=== PATIENT | female | born 1955 | race Caucasian/White ===

== ENCOUNTER 2022-04-21 12:41 | Emergency (ER) | payer OTHER ==
[2022-04-21 13:38] LABS: #Eosinphils 0.2 thou/uL (0.0-0.7); #Lymphocytes 1.3 thou/uL (1.20-3.40); #Monocytes 0.4 thou/uL (0.11-0.59); #Neutrophils 3.8 thou/uL (1.40-6.50); %Basophils 0.1 % (0.0-1.0); %Eosinophils 2.6 % (0.0-10.0); %Lymphocytes 23.6 % (21.0-51.0); %Monocytes 6.6 % (0.0-10.0); %Neutrophils 67.1 % (42.0-75.0); Hemoglobin 12.4 g/dL (12.0-16.0); Mean Corpuscular HGB CONC 33.6 g/dL (32.0-36.0); Mean Corpuscular Volume 92.1 fl (78.0-98.0); Mean Platelet Volume 8.9 fL (7.4-10.4); Platelet Count 177 10x3/uL (130-400); RBC Distribution Width 11.8 % (11.5-14.5); Red Blood Cell (RBC) Count 3.99 mill/uL (4.20-5.40); White Blood Cell (WBC) Count 5.7 10x3/uL (4.8-10.8)
[2022-04-21 13:43] LABS: Bacteria/HPF None Seen HPF (None Seen); Bilirubin Negative (Negative); Blood, Urine Negative (Negative); Clarity Clear (Clear); Glucose, Urine (Dipstick) Normal (Negative); Ketone, Urine Negative (Negative); Leukocyte 75 Leu/uL (Negative); Nitrite Negative (Negative); Protein, Urine (Dipstick) Negative (Neg-Trace); RBC/HPF 0-3 HPF (0-3); Specific Gravity, Urine 1.018 (1.002-1.036); Squamous Epithelial 0-3 HPF (0-3); Urobilinogen Normal mg/dL (Less than 2); WBC/HPF 0-3 HPF (0-3)
[2022-04-21 13:55] LABS: ALT (SGPT) 29 U/L (8-55); AST (SGOT) 28 U/L (5-34); Albumin 3.6 g/dL (3.4-4.8); Alkaline Phosphatase 73 U/L (40-110); Anion Gap 10 mmol/L (10-20); BUN (Urea Nitrogen) 12 mg/dL (9.8-20.1); Bilirubin, Total 0.9 mg/dL (0.2-1.2); Calc. Creatinine Clearance 0 mL/min (70-130); Calcium 8.6 mg/dL (7.8-10.44); Carbon Dioxide 30 mmol/L (23-31); Chloride 104 mmol/L (98-107); Estimated GFR 96; Globulin 3.1 g/dL (2.4-3.5); Glucose 95 mg/dL (80-115); Potassium 3.8 mmol/L (3.5-5.1); Protein, Total 6.7 g/dL (5.8-8.1); Sodium 140 mmol/L (136-145)
== END 2022-04-21 15:52 | disposition home or self-care (01) ==
LOC: ERS 12:41
DX: M79.604 Pain in right leg (principal); R41.82 Altered mental status, unspecified; F17.210 Nicotine dependence, cigarettes, uncomplicated; W18.30XA Fall on same level, unspecified, initial encounter; Y93.01 Activity, walking, marching and hiking
CPT/HCPCS: 36415; 36416; 70450; 71046; 80053; 81003; 81015; 84484; 85025; 93005

== ENCOUNTER 2022-05-14 14:36 | Observation (INO) | payer OTHER ==
[2022-05-14 15:11] LABS: #Eosinphils 0.2 thou/uL (0.0-0.7); #Lymphocytes 1.4 thou/uL (1.20-3.40); #Monocytes 0.5 thou/uL (0.11-0.59); #Neutrophils 3.7 thou/uL (1.40-6.50); %Basophils 0.1 % (0.0-1.0); %Eosinophils 2.7 % (0.0-10.0); %Monocytes 8.3 % (0.0-10.0); %Neutrophils 64.9 % (42.0-75.0); Hemoglobin 12.9 g/dL (12.0-16.0); Mean Corpuscular HGB CONC 34.1 g/dL (32.0-36.0); Mean Corpuscular Hemoglobin 31.3 pg (27.0-31.0); Mean Platelet Volume 8.1 fL (7.4-10.4); Platelet Count 213 10x3/uL (130-400); RBC Distribution Width 11.9 % (11.5-14.5); Red Blood Cell (RBC) Count 4.12 mill/uL (4.20-5.40); White Blood Cell (WBC) Count 5.6 10x3/uL (4.8-10.8)
[2022-05-14 15:34] LABS: ALT (SGPT) 26 U/L (8-55); AST (SGOT) 26 U/L (5-34); Albumin 3.8 g/dL (3.4-4.8); Alkaline Phosphatase 80 U/L (40-110); Anion Gap 12 mmol/L (10-20); BUN (Urea Nitrogen) 14 mg/dL (9.8-20.1); Bilirubin, Total 0.8 mg/dL (0.2-1.2); Calc. Creatinine Clearance 0 mL/min (70-130); Calcium 9.4 mg/dL (7.8-10.44); Carbon Dioxide 29 mmol/L (23-31); Chloride 103 mmol/L (98-107); Estimated GFR 92; Globulin 2.7 g/dL (2.4-3.5); Glucose 91 mg/dL (80-115); Potassium 4.1 mmol/L (3.5-5.1); Protein, Total 6.5 g/dL (5.8-8.1); Sodium 140 mmol/L (136-145)
[2022-05-14] MEDS ORDERED: Ondansetron PF 4 MG/2 ML Vial ONE (17:02)
[2022-05-14] MEDS ORDERED: Morphine 4 MG/ML VIAL ONE (17:02)
[2022-05-14 18:31] LABS: Magnesium 1.9 mg/dL (1.6-2.6)
[2022-05-14 20:55] VITALS: BMI 18.3
[2022-05-14] MEDS: Acetaminophen 500 MG TAB PO PRN (22:53)
[2022-05-14] MEDS ORDERED: Melatonin 3 MG TAB PO SCH (23:45)
[2022-05-15] MEDS: Aspirin Chewable 81 MG TAB PO SCH (09:02)
[2022-05-15] MEDS: Oxybutynin 5 MG TAB PO SCH ×2 (09:02→20:39)
[2022-05-15] MEDS: carBAMazepine 200 MG TAB PO SCH ×2 (09:02→20:39)
[2022-05-15] MEDS: Venlafaxine XR 37.5 MG CAP PO SCH (09:02)
[2022-05-16 06:01] LABS: Troponin I Less than 0.010 ng/mL (< 0.028)
[2022-05-16] MEDS: carBAMazepine 200 MG TAB PO SCH (07:54)
[2022-05-16] MEDS: Venlafaxine XR 37.5 MG CAP PO SCH (07:54)
[2022-05-16] MEDS: Oxybutynin 5 MG TAB PO SCH (07:55)
[2022-05-16] MEDS: Aspirin Chewable 81 MG TAB PO SCH (07:55)
[2022-05-16] MEDS: Acetaminophen 500 MG TAB PO PRN (08:03)
[2022-05-16] MEDS ORDERED: Regadenoson 0.4 MG/5 ML SYRINGE ONE (09:35)
[2022-05-16 11:14] VITALS: BP 120/61; TEMP 97.8
== END 2022-05-16 16:57 | disposition home or self-care (01) ==
LOC: ERS 14:36 → 2SW 17:38
PROVIDERS: ADMIT Internal Medicine; ATTEND Internal Medicine
DX: R07.89 Other chest pain (principal); J44.9 Chronic obstructive pulmonary disease, unspecified; F17.290 Nicotine dependence, other tobacco product, uncomplicated; Z86.73 Personal history of transient ischemic attack (TIA), and cerebral infarction without residual deficits; Z79.899 Other long term (current) drug therapy; Z20.822 Contact with and (suspected) exposure to COVID-19
CPT/HCPCS: 71045; 78452; 83735; 84484 ×2; 85379; 93005; 93017; 93306; 94760; 96374; 96375; 99285; A9500; U0003; U0005; 36415; 80053; 84443; 85025; G0378; J2270; J2405

== ENCOUNTER 2022-12-19 11:40 | Outpatient (CLI) | payer OTHER, MEDICAID | END 2022-12-19 11:41 | disposition home or self-care (01) | LOC: ULT 11:40 | PROVIDERS: ATTEND Family Medicine | DX: N89.8 Other specified noninflammatory disorders of vagina (principal); N32.3 Diverticulum of bladder | CPT/HCPCS: 76856 ==

== ENCOUNTER 2023-02-23 21:40 | Emergency (ER) | payer OTHER, MEDICAID ==
[2023-02-23] MEDS ORDERED: Sulfameth/Trimethoprim DS 800-160mg TAB ONE (22:13)
[2023-02-23] MEDS ORDERED: Boostrix 0.5 ML (Tdap) VIAL (>/=7 yrs of age) ONE (22:14)
== END 2023-02-23 22:50 | disposition home or self-care (01) ==
LOC: ERS 21:40
DX: T22.231A Burn of second degree of right upper arm, initial encounter (principal); L03.113 Cellulitis of right upper limb; X15.0XXA Contact with hot stove (kitchen), initial encounter; Y93.G3 Activity, cooking and baking; Z87.891 Personal history of nicotine dependence; Z23 Encounter for immunization
CPT/HCPCS: 90471; 90715

== ENCOUNTER 2024-10-13 14:08 | Emergency (ER) | payer OTHER ==
[2024-10-13 15:48] LABS: #Basophils Less than 0.03 10x3/uL (0.0-0.2); #Eosinophils 0.06 10x3/uL (0.0-0.7); #Monocytes 0.37 10x3/uL (0.11-0.59); #Neutrophils 3.48 10x3/uL (1.40-6.50); %Basophils 0.4 % (0.0-1.0); %Eosinophils 1.2 % (0.0-10.0); %Lymphocytes 19.4 % (21.0-51.0); %Monocytes 7.6 % (0.0-10.0); %Neutrophils 71.2 % (42.0-75.0); Hematocrit 39.2 % (36.0-47.0); Hemoglobin 12.7 g/dL (12.0-16.0); Mean Corpuscular Hemoglobin 28.7 pg (27.0-31.0); Mean Corpuscular Volume 88.5 fL (78.0-98.0); Platelet Count 169 10x3/uL (130-400); Red Blood Cell (RBC) Count 4.43 mill/uL (4.20-5.40); White Blood Cell (WBC) Count 4.89 10x3/uL (4.8-10.8)
[2024-10-13 15:56] LABS: Bacteria/HPF 2+ HPF (None Seen); CAUTI Indications for Culture Alt mental st,lethar; Glucose, Urine (Dipstick) Normal (Negative); Leukocyte 25 Leu/uL (Negative); Protein, Urine (Dipstick) Negative (Neg-Trace); RBC/HPF None Seen HPF (0-3); Specific Gravity, Urine 1.018 (1.002-1.036)
[2024-10-13 15:58] LABS: Urine Culture Reflex No No
[2024-10-13 16:06] LABS: ALT (SGPT) 23 U/L (Less than 34); AST (SGOT) 29 U/L (11-34); Albumin 3.8 g/dL (3.1-4.5); Alkaline Phosphatase 88 U/L (40-110); Anion Gap 11 mmol/L (10-20); BUN (Urea Nitrogen) 10 mg/dL (9.8-20.1); Bilirubin, Total 0.7 mg/dL (0.3-1.2); CK (CPK) 77 U/L (29-168); Calc. Creatinine Clearance 0 mL/min (70-130); Calcium 8.9 mg/dL (7.8-10.44); Carbon Dioxide 28 mmol/L (23-31); Chloride 109 mmol/L (98-107); Globulin 3.5 g/dL (2.4-3.5); Glucose 91 mg/dL (80-115); Potassium 4.0 mmol/L (3.5-5.1); Sodium 144 mmol/L (136-145)
[2024-10-13] MEDS ORDERED: cefTRIAXone (ROCEPHIN) 1 GM VIAL ONE (16:24)
== END 2024-10-13 17:53 | disposition home or self-care (01) ==
LOC: ERS 14:08
DX: E86.0 Dehydration (principal); N39.0 Urinary tract infection, site not specified
CPT/HCPCS: 71045; 80053; 81001; 82550; 84484; 85025; 87428; 93005; J0696; 96361; 96365